=== PATIENT | male | born 1970 | race African-American/Black ===

== ENCOUNTER 2017-07-01 18:21 | Inpatient (IN) | payer OTHER ==
[2017-07-01 18:59] LABS: BASO % 0 % (0-3); EOS % 0 % (0-3); HEMATOCRIT 44.8 % (39.0-53.0); HEMOGLOBIN 15.1 g/dL (13.0-17.5); LYMPH # 0.4 x10^3/uL (1.0-4.8); LYMPH % 3 % (24-48); MEAN CORPUSCULAR HEMOGLOBIN 31 pg (25-35); MEAN CORPUSCULAR HGB CONC 34 g/dL (31-37); MEAN CORPUSCULAR VOLUME 93 fL (79-100); MONO # 0.5 x10^3/uL (0.0-1.1); MONO % 3 % (0-9); NEUT # 15.4 x10^3uL (1.8-7.7); NEUT % 94 % (31-73); PLATELET COUNT 213 x10^3/uL (140-400); RED BLOOD COUNT 4.82 x10^6/uL (4.30-5.70); RED CELL DISTRIBUTION WIDTH 14.5 % (11.5-14.5); WHITE BLOOD COUNT 16.4 x10^3/uL (4.0-11.0)
[2017-07-01 19:03] LABS: ADD MAN DIFF? YES
[2017-07-01 19:07] LABS: ANION GAP 8 (6-14); BILIRUBIN,URINE SMALL (NEG); BLOOD UREA NITROGEN 19 mg/dL (8-26); BUN/CREATININE RATIO 17 (6-20); CALCIUM 8.6 mg/dL (8.5-10.1); CARBON DIOXIDE 30 mmol/L (21-32); CHLORIDE 104 mmol/L (98-107); CLARITY,URINE CLEAR; COLOR,URINE YELLOW; CREATININE 1.1 mg/dL (0.7-1.3); GFR 71.4; GLUCOSE 134 mg/dL (70-99); GLUCOSE,URINE NEGATIVE (NEG); NITRITE,URINE NEGATIVE (NEG); POTASSIUM 3.4 mmol/L (3.5-5.1); PROTEIN,URINE NEGATIVE (NEG-TRACE); SODIUM 142 mmol/L (136-145)
[2017-07-01] MEDS: ONDANSETRON PF 4 MG/2 ML VIAL. IV ×2 (19:07)
[2017-07-01] MEDS: IV NORMAL SALINE 1000ML BAG 1,000 ML IV ×4 (19:07→23:44)
[2017-07-01] MEDS: fentaNYL PF VIAL 100 MCG/2 ML VIAL IV ×4 (19:09→20:06)
[2017-07-01 19:13] LABS: ALBUMIN 3.5 g/dL (3.4-5.0); ALK PHOS 61 U/L (46-116); ALT (SGPT) 22 U/L (16-63); AST (SGOT) 19 U/L (15-37); TOTAL BILIRUBIN 0.2 mg/dL (0.2-1.0)
[2017-07-01 19:18] LABS: BACTERIA,URINE FEW /HPF (0-FEW); INFLUENZA A PATIENT NEGATIVE (NEGATIVE); INFLUENZA B PATIENT NEGATIVE (NEGATIVE); OBC FLU VALID; RBC,URINE >40 /HPF (0-2); SQUAMOUS EPITHELIAL CELL,UR FEW /LPF
[2017-07-01 19:28] LABS: % LYMPHS 4 % (24-48); % MONOS 8 % (0-10); % SEGS 88 % (35-66); PLT ESTIMATE ADEQUATE (ADEQUATE)
[2017-07-01] MEDS ORDERED: CONTRAST GIVEN MC ×2 (19:45)
[2017-07-01] MEDS: IOHEXOL 300 MG/ML 100ML VIAL. IV ×2 (20:14)
[2017-07-01] MEDS ORDERED: MORPHINE SULFATE 2 MG/ML DISP.SYRIN. IV ×2 (23:00)
[2017-07-01] MEDS ORDERED: ONDANSETRON PF 4 MG/2 ML VIAL. IV ×2 (23:00)
[2017-07-01] MEDS ORDERED: MORPHINE SULFATE 4 MG/ML DISP.SYRIN. IV ×2 (23:00)
[2017-07-02] MEDS: IV NORMAL SALINE 1000ML BAG 1,000 ML IV ×4 (08:44→19:50)
[2017-07-02] MEDS ORDERED: oxyCODONE/APAP 5/325 1 TAB TABLET PO ×2 (10:00)
[2017-07-02] MEDS: TAMSULOSIN 0.4 MG CAP.ER.24H. PO ×2 (10:50)
[2017-07-02] MEDS: hydroCHLOROthiazide 25 MG TABLET PO ×2 (10:51)
[2017-07-02] MEDS: POTASSIUM CHLORIDE 20 MEQ TABLET.ER. PO ×2 (10:51)
[2017-07-02] MEDS: LISINOPRIL 10 MG TABLET PO ×2 (10:51)
[2017-07-02] MEDS: LACTOBACILLUS RHAMNOSUS GG 1 CAPSULE. PO ×2 (21:18)
[2017-07-03 05:06] LABS: ADD MAN DIFF? NO
[2017-07-03 05:22] LABS: BASO % 0 % (0-3); EOS # 0.2 x10^3/uL (0.0-0.7); EOS % 3 % (0-3); HEMATOCRIT 40.1 % (39.0-53.0); HEMOGLOBIN 13.3 g/dL (13.0-17.5); LYMPH # 1.7 x10^3/uL (1.0-4.8); LYMPH % 24 % (24-48); MEAN CORPUSCULAR HEMOGLOBIN 31 pg (25-35); MEAN CORPUSCULAR HGB CONC 33 g/dL (31-37); MEAN CORPUSCULAR VOLUME 93 fL (79-100); MONO # 0.5 x10^3/uL (0.0-1.1); MONO % 7 % (0-9); NEUT # 4.6 x10^3uL (1.8-7.7); NEUT % 66 % (31-73); PLATELET COUNT 178 x10^3/uL (140-400); RED BLOOD COUNT 4.29 x10^6/uL (4.30-5.70); RED CELL DISTRIBUTION WIDTH 14.8 % (11.5-14.5)
[2017-07-03 05:56] LABS: ALBUMIN 2.9 g/dL (3.4-5.0); ALBUMIN/GLOBULIN RATIO 0.9 (1.0-1.7); ALK PHOS 52 U/L (46-116); ALT (SGPT) 22 U/L (16-63); ANION GAP 5 (6-14); AST (SGOT) 18 U/L (15-37); BLOOD UREA NITROGEN 9 mg/dL (8-26); BUN/CREATININE RATIO 8 (6-20); CALCIUM 8.3 mg/dL (8.5-10.1); CARBON DIOXIDE 29 mmol/L (21-32); CHLORIDE 107 mmol/L (98-107); CREATININE 1.1 mg/dL (0.7-1.3); GFR 86.4; GLUCOSE 96 mg/dL (70-99); POTASSIUM 3.8 mmol/L (3.5-5.1); SODIUM 141 mmol/L (136-145); TOTAL BILIRUBIN 0.2 mg/dL (0.2-1.0); TOTAL PROTEIN 6.2 g/dL (6.4-8.2)
[2017-07-03] MEDS: LACTOBACILLUS RHAMNOSUS GG 1 CAPSULE. PO ×2 (08:16)
[2017-07-03] MEDS: hydroCHLOROthiazide 25 MG TABLET PO ×2 (08:17)
[2017-07-03] MEDS: TAMSULOSIN 0.4 MG CAP.ER.24H. PO ×2 (08:17)
[2017-07-03] MEDS: LISINOPRIL 10 MG TABLET PO ×2 (08:18)
== END 2017-07-03 14:52 | disposition home or self-care (01) | DRG 690 ==
LOC: ER 18:21 → 6 SOUTH 22:51
DX: N39.0 Urinary tract infection, site not specified (principal); R65.10 Systemic inflammatory response syndrome (SIRS) of non-infectious origin without acute organ dysfunction; I10 Essential (primary) hypertension; N40.0 Benign prostatic hyperplasia without lower urinary tract symptoms; F41.9 Anxiety disorder, unspecified; Z88.0 Allergy status to penicillin
CPT/HCPCS: 36415; 74177; 80053; 81001; 85007; 85025; 87040; 87804; 87804-59; 96361; 96365; 96375; 99285; 99285-25; J1956; J2405; J3010; J7030; Q9967